=== PATIENT | male | born 1975 | race Caucasian/White ===

== ENCOUNTER 2021-08-12 19:04 | Emergency (ER) | payer BC ==
[2021-08-12 20:00] LABS: HEMOGLOBIN 15.3 gm/dl (14.0-17.5); RED BLOOD COUNT 5.06 M/UL (4.20-5.50); WHITE BLOOD COUNT 8.8 K/UL (4.5-11.0)
[2021-08-12 20:25] LABS: BUN/CREATININE RATIO 11 (0-10)
== END 2021-08-13 00:21 | disposition home or self-care (01) ==
LOC: ER1 19:04
PROVIDERS: Student in an Organized Health Care Education/Training Program
DX: M25.512 Pain in left shoulder (principal); R10.9 Unspecified abdominal pain; R68.83 Chills (without fever); I10 Essential (primary) hypertension; K21.9 Gastro-esophageal reflux disease without esophagitis; F17.200 Nicotine dependence, unspecified, uncomplicated; Z91.041 Radiographic dye allergy status
CPT/HCPCS: 71045; 74018; 80053; 81001; 82550; 82553; 83690; 84484; 85025; 93005; 99284